=== PATIENT | female | born 1945 | race Caucasian/White ===

== ENCOUNTER 2021-02-05 06:53 | Day surgery (SDC) | payer MEDICARE, BC ==
[~2021-02-05] VITALS: Ht 165.1 cm; Wt 61.4 kg
[~2021-02-05 06:53] MED LIST: ASPI81TA26 PO; BSS IRR 500ML/OMIDRIA 4ML IRR BAG (OR ONLY) IO ONE; CART120C PO; CEFUROXIME 1MG/0.1ML INTRACAMERAL INJ ICAM ONE; D31000TA2 PO; DUOVISC (0.50ML VISCOAT/0.85ML PROVISC) OPHTH KIT As Ordered ONE; NITR4TASL SL; OCUVTAB4 PO; PROL60SO SC; PROPARACAINE 0.5% OPHTH SOL 15ML OD ONE; SM HTAB3 PO; VENTAER INH
[2021-02-05] MEDS ORDERED: CEFUROXIME 1MG/0.1ML INTRACAMERAL INJ As Ordered ONE (07:19)
[2021-02-05] MEDS ORDERED: BSS IRR 500ML/OMIDRIA 4ML IRR BAG (OR ONLY) As Ordered ONE (07:20)
[2021-02-05] MEDS ORDERED: MIDAZOLAM INJ 2MG/2ML VIAL (J2250 PER 1MG) As Ordered ONE (07:37)
[2021-02-05] MEDS ORDERED: fentaNYL 100 MCG/2 ML INJECTION (J3010) As Ordered ONE (07:38)
[2021-02-05] MEDS: OFLOXACIN 0.3 % (OCUFLOX) OPTH SOL 5ML OD SCH ×3 (07:53→08:10)
[2021-02-05] MEDS: TROPICAMIDE 1% OPHTH SOLN 2ML OD SCH ×3 (07:53→08:10)
[2021-02-05] MEDS: PHENYLEPHRINE 2.5% OPHTH SOL 2ML OD SCH ×3 (07:54→08:10)
[2021-02-05 10:33] VITALS: BP 118/65
== END 2021-02-05 10:52 | disposition home or self-care (01) ==
LOC: M SDC 06:53
PROVIDERS: ATTEND Ophthalmology
DX: H25.11 Age-related nuclear cataract, right eye (principal); I20.9 Angina pectoris, unspecified; J45.909 Unspecified asthma, uncomplicated; Z79.82 Long term (current) use of aspirin; Z79.899 Other long term (current) drug therapy; Z88.8 Allergy status to other drugs, medicaments and biological substances; Z91.041 Radiographic dye allergy status
CPT/HCPCS: 66984; J1097; J2250; J3010